=== PATIENT | male | born 1950 | race Caucasian/White ===

== ENCOUNTER → 2017-08-23 | Outpatient (CLI) | payer OTHER ==
[2017-08-23 17:58] LABS: CREATININE 1.3 mg/dL (0.6-1.3)
== END ==
LOC: M.LAB 17:32 → M.CT 17:32
PROVIDERS: Surgery
DX: K61.1 Rectal abscess (principal)

== ENCOUNTER → 2019-03-18 | Outpatient (CLI) | payer OTHER ==
[~2019-03-18] MED LIST: KEFLEX500 M2 PO; NORCO 5-325 TA1 EAC1 PO; OFEV100 MG PO; WATER PILL; XARELTO2.5 MG PO
== END ==
LOC: M.WC 09:17
DX: E11.621 Type 2 diabetes mellitus with foot ulcer (principal); L97.411 Non-pressure chronic ulcer of right heel and midfoot limited to breakdown of skin; E78.5 Hyperlipidemia, unspecified; I27.20 Pulmonary hypertension, unspecified; I11.0 Hypertensive heart disease with heart failure; I50.9 Heart failure, unspecified; J84.10 Pulmonary fibrosis, unspecified; Z95.0 Presence of cardiac pacemaker; Z79.4 Long term (current) use of insulin

== ENCOUNTER → 2019-03-25 | Outpatient (CLI) | payer OTHER | LOC: M.WC 05:10 | DX: E11.621 Type 2 diabetes mellitus with foot ulcer (principal); L97.412 Non-pressure chronic ulcer of right heel and midfoot with fat layer exposed; E78.5 Hyperlipidemia, unspecified; I11.0 Hypertensive heart disease with heart failure; I50.9 Heart failure, unspecified; I27.20 Pulmonary hypertension, unspecified; Z95.810 Presence of automatic (implantable) cardiac defibrillator ==

== ENCOUNTER → 2019-03-28 | Outpatient (CLI) | payer OTHER | LOC: M.WC 12:39 | DX: E11.621 Type 2 diabetes mellitus with foot ulcer (principal); L97.412 Non-pressure chronic ulcer of right heel and midfoot with fat layer exposed; E78.5 Hyperlipidemia, unspecified; I11.0 Hypertensive heart disease with heart failure; I50.9 Heart failure, unspecified; I27.20 Pulmonary hypertension, unspecified; J84.10 Pulmonary fibrosis, unspecified ==

== ENCOUNTER → 2019-04-01 | Outpatient (CLI) | payer OTHER | LOC: M.WC 05:40 | DX: E11.621 Type 2 diabetes mellitus with foot ulcer (principal); L97.412 Non-pressure chronic ulcer of right heel and midfoot with fat layer exposed; E78.5 Hyperlipidemia, unspecified; I27.20 Pulmonary hypertension, unspecified; I11.0 Hypertensive heart disease with heart failure; I50.9 Heart failure, unspecified; J84.10 Pulmonary fibrosis, unspecified ==

== ENCOUNTER → 2019-04-04 | Outpatient (CLI) | payer OTHER | LOC: M.WC 04:50 | DX: E11.621 Type 2 diabetes mellitus with foot ulcer (principal); L97.511 Non-pressure chronic ulcer of other part of right foot limited to breakdown of skin; L97.412 Non-pressure chronic ulcer of right heel and midfoot with fat layer exposed; I11.0 Hypertensive heart disease with heart failure; I27.20 Pulmonary hypertension, unspecified; I50.9 Heart failure, unspecified; E78.5 Hyperlipidemia, unspecified ==

== ENCOUNTER 2019-04-06 12:21 | Emergency (ER) | payer OTHER ==
[~2019-04-06] VITALS: Ht 188 cm; Wt 88.5 kg
[2019-04-06] MEDS ORDERED: OFEV100 MG PO (12:35)
[2019-04-06] MEDS ORDERED: XARELTO2.5 MG PO (12:36)
[2019-04-06] MEDS ORDERED: WATER PILL (12:37)
[2019-04-06] MEDS ORDERED: KEFLEX500 M2 PO (12:37)
[2019-04-06] MEDS ORDERED: NORCO 5-325 TA1 EAC1 PO (14:41)
[2019-04-06 15:12] VITALS: BP 155/71
== END 2019-04-06 15:12 | disposition home or self-care (01) ==
LOC: M.ERS 12:21
DX: S90.921A Unspecified superficial injury of right foot, initial encounter (principal); Z48.01 Encounter for change or removal of surgical wound dressing; E11.9 Type 2 diabetes mellitus without complications; X58.XXXA Exposure to other specified factors, initial encounter; Y93.89 Activity, other specified; Y92.89 Other specified places as the place of occurrence of the external cause; Y99.8 Other external cause status

== ENCOUNTER → 2019-04-07 | Outpatient (CLI) | payer OTHER ==
[2019-04-07 08:49] LABS: ABSOLUTE EOSINOPHILS 0.1 thou/uL (0.0-0.7); ABSOLUTE LYMPHOCYTES 1.1 thou/uL (0.8-5.3); ABSOLUTE MONOCYTES 0.3 thou/uL (0.0-1.2); ABSOLUTE NEUTROPHILS 2.8 thou/uL (1.6-8.1); BASOPHILS 0.2 %; EOSINOPHILS 2.4 %; HEMOGLOBIN 13.2 gm/dL (14.0-18.0); LYMPHOCYTES 25.8 %; MCH 32.7 pg (26.0-34.0); MCHC 33.8 g/dL (28.0-37.0); MCV 96.8 fL (80.0-100.0); MONOCYTES 7.2 %; MPV 7.2 fl. (7.2-11.1); NUCLEATED RBCS 0 /100WBC; PLATELET COUNT* 135 thou/uL (150-400); POLYS 64.4 %; RBC 4.03 mil/uL (4.50-6.00); RDW-CV 14.5 % (10.5-14.5); WBC 4.3 thou/uL (4.0-11.0)
== END ==
LOC: M.WC 08:00
PROVIDERS: Surgery
DX: E11.621 Type 2 diabetes mellitus with foot ulcer (principal); L97.511 Non-pressure chronic ulcer of other part of right foot limited to breakdown of skin; L97.412 Non-pressure chronic ulcer of right heel and midfoot with fat layer exposed; E78.5 Hyperlipidemia, unspecified; I11.0 Hypertensive heart disease with heart failure; I50.9 Heart failure, unspecified; I27.20 Pulmonary hypertension, unspecified; Z95.810 Presence of automatic (implantable) cardiac defibrillator

== ENCOUNTER → 2019-04-15 | Outpatient (CLI) | payer OTHER ==
[2019-04-15 08:25] LABS: CREATININE 0.9 mg/dL (0.6-1.3)
== END ==
LOC: M.MRI 07:59 → M.LAB 07:59 → M.MRI 08:30
PROVIDERS: Emergency Medicine Undersea and Hyperbaric Medicine
DX: Z48.01 Encounter for change or removal of surgical wound dressing (principal); E11.621 Type 2 diabetes mellitus with foot ulcer; L97.519 Non-pressure chronic ulcer of other part of right foot with unspecified severity; M86.8X7 Other osteomyelitis, ankle and foot; Z95.810 Presence of automatic (implantable) cardiac defibrillator

== ENCOUNTER → 2019-04-15 | Outpatient (CLI) | payer OTHER | LOC: M.WC 04-08 08:00 | DX: E11.621 Type 2 diabetes mellitus with foot ulcer (principal); L97.412 Non-pressure chronic ulcer of right heel and midfoot with fat layer exposed; E11.69 Type 2 diabetes mellitus with other specified complication; M86.071 Acute hematogenous osteomyelitis, right ankle and foot; E78.5 Hyperlipidemia, unspecified; I11.0 Hypertensive heart disease with heart failure; I50.9 Heart failure, unspecified; I27.20 Pulmonary hypertension, unspecified; J84.10 Pulmonary fibrosis, unspecified ==

== ENCOUNTER → 2019-04-16 | Outpatient (CLI) | payer OTHER ==
[2019-04-16 16:16] LABS: ABSOLUTE EOSINOPHILS 0.1 thou/uL (0.0-0.7); ABSOLUTE LYMPHOCYTES 1.1 thou/uL (0.8-5.3); ABSOLUTE MONOCYTES 0.3 thou/uL (0.0-1.2); ABSOLUTE NEUTROPHILS 2.1 thou/uL (1.6-8.1); BASOPHILS 0.5 %; EOSINOPHILS 2.4 %; HEMATOCRIT 37.6 % (42.0-52.0); HEMOGLOBIN 12.7 gm/dL (14.0-18.0); MCH 32.9 pg (26.0-34.0); MCHC 33.8 g/dL (28.0-37.0); MCV 97.4 fL (80.0-100.0); MPV 7.8 fl. (7.2-11.1); NUCLEATED RBCS 0 /100WBC; PLATELET COUNT* 111 thou/uL (150-400); POLYS 59.1 %; RBC 3.86 mil/uL (4.50-6.00); RDW-CV 15.1 % (10.5-14.5); WBC 3.6 thou/uL (4.0-11.0)
[2019-04-16 16:23] LABS: CREATININE 1.1 mg/dL (0.6-1.3); POTASSIUM 4.6 mmol/L (3.5-5.1)
[2019-04-16 16:28] LABS: TOTAL BILIRUBIN 0.7 mg/dL (<0.1-1.0); TOTAL PROTEIN 6.4 g/dL (6.4-8.2)
[2019-04-16 17:19] LABS: ESR (SEDRATE) 32 mm/hr (0-20)
[2019-04-17 02:06] LABS: GLYCOHEMOGLOBIN (HGB A1C) 6.4 % (4.8-5.6)
--- NOTE | 2019-04-17 11:53 | CON ---
[address] [address] CONSULTATION Name: KAROLHERMINIO BANDAR [facility] [id number] Admission: 04/16/19 Attend Phys: Paul Green DPM Discharge: Date of : 52 Report #: [id number] THIS REPORT FOR: //name// CC: Paul Walker DATE OF SERVICE: 04/16/2019 INFECTIOUS DISEASE CONSULTATION Referral from the outpatient wound care center. ATTENDING PHYSICIAN: Dr. Paul Green. REASON FOR EVALUATION: Deep right plantar wound complicated by infection, possible osteomyelitis with septic arthritis involving the fifth metatarsophalangeal joint. HISTORY OF PRESENT ILLNESS: Chart reviewed, patient examined. This is a 68-year-old gentleman with diabetes mellitus, reportedly does have minimal neuropathy, not clear if he has any vasculopathy, who has longstanding wound dating back 3-4 weeks along the plantar lateral aspect of his right foot. This has been complicated by bleeding on at least 2 occasions requiring urgent response. Additionally, he had a culture on the initial wound care visit with polymicrobial growth including Enterococcus faecalis and Enterobacter, more recent culture with Escherichia coli as well as Prevotella, has been on ciprofloxacin. Clinically, he has improved. He denies systemic illness, no fevers. He had 1 day of chills. His appetite has been good. He states his blood sugars have been well controlled, rarely exceeding 160, often in the double digits. He denies any significant pulmonary or gastrointestinal related complaints. ALLERGIES: None known. MEDICATIONS: Include dicyclomine, ondansetron, Lipitor, digoxin, Levemir, NovoLog, Lasix, Ofev, Ambien, [place]. PAST MEDICAL HISTORY: Diabetes mellitus, has a defibrillator, ulceration involving the distal right lower extremity. SOCIAL HISTORY: Available in chart. FAMILY HISTORY: Available in chart. REVIEW OF SYSTEMS: Otherwise, unremarkable 10-point review of systems except as noted in the above [place] [address] CONSULTATION Name: HERMINIO ROBERSON Room: [facility]#: [id number] Admission: 04/16/19 Attend Phys: Paul Green DPM Discharge: Date of : 52 Report #: [id number] PHYSICAL EXAMINATION: GENERAL: Alert and cooperative. He is lucid, no acute distress, appears to be reasonably well nourished. VITAL SIGNS: Stable. HEENT: Unremarkable. Normocephalic. Extraocular muscles intact. NECK: Supple. LUNGS: Breathing is nonlabored. EXTREMITIES: Right foot has a large defect overlying the area of the fifth metatarsophalangeal joint and surrounds. There is some necrosis. Post debridement, there was exposed joint capsule. It bled freely. There is no particular purulence, no odor. GENITOURINARY: Deferred. RECTAL: Deferred. LABORATORY DATA: Review of cultures described above. ASSESSMENT AND PLAN: Deep right plantar lateral foot wound complicated by infection. We will continue the Cipro for now. I did ask Dr. Green to get some tissue cultures, which were sent. Also had a lengthy discussion about concerns about chronic osteomyelitis involving the foot. I think it is reasonable to continue the current approach with systemic antibiotics. In the event of lack of healing, consider more aggressive surgical option up to including toe amputation as well as metatarsectomy. At that point, we would likely switch to parenteral antimicrobial therapy. He is to offload the site and optimize his nutritional status. Thank you. We will follow. <ELECTRONICALLY SIGNED> By: Silas Milton MD 04/17/19 1153 1625 0022Josebola Milton MD /nt
== END ==
LOC: M.WC 05:31
PROVIDERS: Specialist
DX: E11.621 Type 2 diabetes mellitus with foot ulcer (principal); L97.412 Non-pressure chronic ulcer of right heel and midfoot with fat layer exposed; E11.69 Type 2 diabetes mellitus with other specified complication; M86.071 Acute hematogenous osteomyelitis, right ankle and foot; E78.5 Hyperlipidemia, unspecified; I11.0 Hypertensive heart disease with heart failure; I50.9 Heart failure, unspecified; I27.20 Pulmonary hypertension, unspecified

== ENCOUNTER → 2019-04-23 | Outpatient (CLI) | payer OTHER ==
--- NOTE | 2019-04-24 13:21 | CON ---
[address] [address] CONSULTATION Name: HERMINIO ROBERSON BANDAR Room: [facility].#: [id number] Admission: 04/23/19 Attend Phys: Paul Green DPM Discharge: Date of : 52 Report #: [id number] THIS REPORT FOR: //name// CC: Paul Walker DATE OF SERVICE: 04/23/2019 INFECTIOUS DISEASE CONSULTATION ATTENDING PHYSICIAN: Paul Green DPM HISTORY OF PRESENT ILLNESS: The patient returns in followup scheduled visit at outpatient [facility]ound Care Center for a chronic ulcer involving the right foot lateral plantar aspect primarily involving the fifth toe as well as the metatarsal site extending down proximally. The patient returns today in followup having been extended on his antibiotics with ciprofloxacin. Repeat culture was available today, which showed coag-negative Staphylococcus that was vancomycin-resistant as well as quinolone resistant. PHYSICAL EXAMINATION: On examination, the wound is fairly clear, although Dr. Green did note exposed hard tissue, specifically the cartilage due to concern about infection, he did debride the site including removing part of the cartilage around the fifth metatarsal head as well as bone, he sent that for pathology. He generally states he feels fairly well. He does not have a significant amount of pain associated with the site. He has had no fevers or chills. His appetite has generally been good. DISCUSSION: There was discussion about more definitive treatment in terms of operative intervention. It was felt that he would have to have a clearance from Cardiology. In the interim, we will initiate a new combination therapy of Bactrim-DS as well as rifampin. Probiotics were made available as well. Wound care as prescribed by Dr. Green, he clearly needs to offload, optimize his nutritional status. Discussed in detail with the patient and his daughter. <ELECTRONICALLY SIGNED> By: Silas Milton MD 04/24/19 1321 1743 [id number] Milton MD /nt
--- NOTE | 2019-04-28 11:07 | PATH ---
[facility] [address] [place] [address] PATHOLOGY RPT PROCEDURE Name: KAROLJEAN BANDAR Room: [facility].#: [id number] Admission: 04/23/19 Date of : 52 Discharge: Report #: [id number] Path Case #: [id number] LCA Accession Number: [id number] . 01 Material submitted: . foot - RIGHT FOOT BONE BIOPSY. Modifiers: right . 01 Clinical history: . None provided . 02 Diagnosis: "Right foot bone", biopsy: - Portion of bone with acute osteomyelitis. - Separate portion of acute and chronically inflamed granulation tissue. (SKM:pit; 04/28/2019) QTP 04/28/2019 0738 Local . 02 Electronically signed: . Bandar Mg MD, Pathologist NPI- [id number] . 01 Gross description: . The specimen is received in formalin, labeled "Jean Kraus, Karma foot bone". Received is a segment of pale mock possible skin measuring 1.4 x 1.4 x 0.2 cm and separately submitted segment of bone measuring 1.0 x 0.9 x 0.5 cm in greatest dimensions. The specimen is submitted entirely in cassette A1, following decalcification. (CAA; 04/24/2019) QA/QA 04/24/2019 1105 Local . 02 Pathologist provided ICD-10: M86.171 . 02 CPT . 394227, 573457 Specimen Comment: A courtesy copy of this report has been sent to [phone] Specimen Comment: [phone] Specimen Comment: Report sent to / DR JIMENEZ Performed at: 01 [facility] [address] [id number] MD Kingsley Robles MD Phone: [phone] Performed at: [address] [id number] MD Mumtaz Gasca MD Phone: [phone]
== END ==
LOC: M.WC 03:20
DX: E11.621 Type 2 diabetes mellitus with foot ulcer (principal); L97.412 Non-pressure chronic ulcer of right heel and midfoot with fat layer exposed; E11.69 Type 2 diabetes mellitus with other specified complication; M86.071 Acute hematogenous osteomyelitis, right ankle and foot; E11.42 Type 2 diabetes mellitus with diabetic polyneuropathy; E78.5 Hyperlipidemia, unspecified; I11.0 Hypertensive heart disease with heart failure; I50.9 Heart failure, unspecified; I27.20 Pulmonary hypertension, unspecified

== ENCOUNTER → 2019-04-30 | Outpatient (CLI) | payer OTHER ==
[2019-04-30 15:50] LABS: ABSOLUTE LYMPHOCYTES 0.6 thou/uL (0.8-5.3); ABSOLUTE MONOCYTES 0.2 thou/uL (0.0-1.2); ABSOLUTE NEUTROPHILS 2.3 thou/uL (1.6-8.1); BASOPHILS 0.3 %; EOSINOPHILS 1.5 %; HEMATOCRIT 39.9 % (42.0-52.0); HEMOGLOBIN 13.4 gm/dL (14.0-18.0); LYMPHOCYTES 18.6 %; MCH 32.2 pg (26.0-34.0); MCHC 33.6 g/dL (28.0-37.0); MCV 95.9 fL (80.0-100.0); MONOCYTES 6.5 %; MPV 7.6 fl. (7.2-11.1); NUCLEATED RBCS 0 /100WBC; PLATELET COUNT* 137 thou/uL (150-400); POLYS 73.1 %; RBC 4.15 mil/uL (4.50-6.00); RDW-CV 15.1 % (10.5-14.5); WBC 3.2 thou/uL (4.0-11.0)
[2019-04-30 16:02] LABS: ALBUMIN 3.5 g/dL (3.4-5.0); CALCIUM 9.5 mg/dL (8.5-10.1); CREATININE 0.9 mg/dL (0.6-1.3); POTASSIUM 4.8 mmol/L (3.5-5.1); TOTAL BILIRUBIN 0.8 mg/dL (<0.1-1.0); TOTAL PROTEIN 6.9 g/dL (6.4-8.2)
--- NOTE | 2019-05-01 11:58 | CON ---
[address] [address] CONSULTATION Name: KAROLHERMINIO BANDAR Room: [facility]..#: [id number] Admission: 04/30/19 Attend Phys: Paul Green DPM Discharge: Date of : 52 Report #: [id number] THIS REPORT FOR: //name// CC: Paul Walker DATE OF SERVICE: 04/30/2019 INFECTIOUS DISEASE CONSULTATION FOLLOWUP ATTENDING PHYSICIAN: Paul Green DPM. HISTORY OF PRESENT ILLNESS: He is here for followup of chronic ulceration involving the lateral aspect of the right foot, had been initially evaluated with culture with growth of coag-negative staph. He has been placed on combination therapy due to concerns about extension to the bone, utilizing a trimethoprim sulfamethoxazole as well as rifampin. Clinically, he states he has been feeling relatively well. Denies any systemic illness. He does have ongoing issues with pain associated with the site, primarily involving the fifth metatarsophalangeal joint. On examination, the wound appeared to be improved. There is some suggestion that there is a superficial inflammation that has persisted, although it is better. He did debride the site, has increased granulation tissue. Overall, dimensions are decreased. Review of pathology noted evidence of acute osteomyelitis involving the snippet of bone that he took in the office. ASSESSMENT AND PLAN: Osteomyelitis. At this point, there have been discussions about proceeding with surgery. There are factors including that he does have atrial thrombus, is on anticoagulation. He would be at significant risk in terms of therapy. The wound overall has improved. It is felt that likely he has a nonfunctional fifth toe at this point and eventually may need to have that removed. We will continue current therapy as prescribed. Check weekly labs. We will see him back in 1 week. <ELECTRONICALLY SIGNED> By: Silas Milton MD 05/01/19 1158 0843 [id number] Milton MD /nt
--- NOTE | 2019-05-05 11:07 | PATH ---
[address] [address] PATHOLOGY RPT PROCEDURE Name: KAROLJEAN BANDAR Room: [facility].#: [id number] Admission: 04/30/19 Date of : 52 Discharge: Report #: [id number] Path Case #: [id number] LCA Accession Number: [id number] . 01 Material submitted: . foot - BONE RIGHT DISTAL LATERAL PLANTAR FOOT. Modifiers: right, distal, lateral . 01 Clinical history: . Wound . 02 Diagnosis: Bone, right foot, biopsy: - Portion of bone with fibrosis of marrow space. . (SKM:mml; 05/02/2019) QLM 05/02/2019 1532 Local . 02 Electronically signed: . Bandar Mg MD, Pathologist NPI- [id number] . 01 Gross description: . The specimen is received in formalin labeled "Jean Kraus, bone R foot". The specimen source is listed on the requisition as "right, distal, lateral, plantar foot". Received is an irregular, roughly ovoid segment of granular, mock-brown bone admixed with soft tissue measuring 0.8 x 0.6 x 0.4 cm in greatest dimensions. The specimen is inked black, bisected and submitted entirely in cassette A1, following decalcification. (DAC; 05/01/2019) XDC/XDC 05/01/2019 1239 Local . 02 Pathologist provided ICD-10: Z03.89 . 02 CPT . 820697, 770804 Specimen Comment: A courtesy copy of this report has been sent to [phone] Specimen Comment: [phone] Specimen Comment: Report sent to / DR JIMENEZ Performed at: [address] [id number] MD Kingsley Robles MD Phone: [phone] Performed at: 02 [facility] [address] [place], [place] [id number] [place] [id number] PATHOLOGY RPT PROCEDURE Name: JEAN KRAUS [facility] [id number] Admission: 04/30/19 Date of : 52 Discharge: Report #: [id number] Path Case #: [id number] MD Russell Marie MD Phone: [phone]
== END ==
LOC: M.WC 05:05
PROVIDERS: Podiatrist Foot & Ankle Surgery
DX: E11.621 Type 2 diabetes mellitus with foot ulcer (principal); L97.416 Non-pressure chronic ulcer of right heel and midfoot with bone involvement without evidence of necrosis; E11.69 Type 2 diabetes mellitus with other specified complication; M86.071 Acute hematogenous osteomyelitis, right ankle and foot; E78.5 Hyperlipidemia, unspecified; I11.0 Hypertensive heart disease with heart failure; I50.9 Heart failure, unspecified; I27.20 Pulmonary hypertension, unspecified; J84.10 Pulmonary fibrosis, unspecified

== ENCOUNTER → 2019-05-07 | Outpatient (CLI) | payer OTHER ==
--- NOTE | 2019-05-08 12:18 | CON ---
[address] [address] CONSULTATION Name: KAROLHERMINIO PORTILLO Room: [facility] M.R.#: [id number] Admission: 05/07/19 Attend Phys: Paul Green DPM Discharge: Date of : 52 Report #: [id number] THIS REPORT FOR: //name// CC: Paul Walker DATE OF SERVICE: 05/07/2019 ATTENDING PHYSICIAN: Paul Green DPM HISTORY OF PRESENT ILLNESS: He is here for followup of lateral right foot ulceration in setting of chronic osteomyelitis. He was recently noted to have exposed bone. This was removed and sent off for path. Culture with growth of Staphylococcus. He had been empirically started on minocycline and rifampin. It was notified that due to his pulmonary fibrosis and medicine requires, there is substantial risk due to increased metabolism and felt the drug levels may drop. The rifampin was discontinued. He continued to show improvement. The overall wound on probing, there is no exposed bone. The degree of inflammation is significantly less than it was last week. He does note there is no significant amount of pain. Chronic ulceration. For previous chronic osteomyelitis post resection of the metatarsal head, we will continue minocycline as prescribed. We will optimize his nutritional status. Wound care per Dr. Green. I think the goal at this point is to heel the wound. May reconsider amputation of the fifth toe at a later date. <ELECTRONICALLY SIGNED> By: Silas Milton MD 05/08/19 1218 1743 0036Joseph Anne Milton MD /nt
== END ==
LOC: M.WC 04:59
DX: E11.621 Type 2 diabetes mellitus with foot ulcer (principal); L97.412 Non-pressure chronic ulcer of right heel and midfoot with fat layer exposed; E11.69 Type 2 diabetes mellitus with other specified complication; M86.071 Acute hematogenous osteomyelitis, right ankle and foot; E78.5 Hyperlipidemia, unspecified; I87.2 Venous insufficiency (chronic) (peripheral); I27.20 Pulmonary hypertension, unspecified; I11.0 Hypertensive heart disease with heart failure; I50.9 Heart failure, unspecified; J84.10 Pulmonary fibrosis, unspecified

== ENCOUNTER → 2019-05-21 | Outpatient (CLI) | payer OTHER ==
[2019-05-21 14:42] LABS: ABSOLUTE EOSINOPHILS 0.2 thou/uL (0.0-0.7); ABSOLUTE LYMPHOCYTES 1.2 thou/uL (0.8-5.3); ABSOLUTE MONOCYTES 0.4 thou/uL (0.0-1.2); ABSOLUTE NEUTROPHILS 3.8 thou/uL (1.6-8.1); BASOPHILS 0.3 %; EOSINOPHILS 3.1 %; HEMATOCRIT 41.3 % (42.0-52.0); LYMPHOCYTES 21.5 %; MCH 32.5 pg (26.0-34.0); MCHC 33.9 g/dL (28.0-37.0); MCV 95.8 fL (80.0-100.0); MONOCYTES 6.6 %; MPV 7.6 fl. (7.2-11.1); NUCLEATED RBCS 0 /100WBC; PLATELET COUNT* 139 thou/uL (150-400); POLYS 68.5 %; RBC 4.32 mil/uL (4.50-6.00); RDW-CV 15.5 % (10.5-14.5); WBC 5.5 thou/uL (4.0-11.0)
[2019-05-21 14:52] LABS: CALCIUM 8.7 mg/dL (8.5-10.1); CREATININE 1.4 mg/dL (0.6-1.3); POTASSIUM 5.9 mmol/L (3.5-5.1)
[2019-05-21 14:56] LABS: ALBUMIN 3.4 g/dL (3.4-5.0); TOTAL BILIRUBIN 0.4 mg/dL (<0.1-1.0); TOTAL PROTEIN 6.4 g/dL (6.4-8.2)
[2019-05-21 16:04] LABS: ESR (SEDRATE) 8 mm/hr (0-20)
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
== END ==
LOC: M.WC 04:01
PROVIDERS: Specialist
DX: E11.621 Type 2 diabetes mellitus with foot ulcer (principal); L97.512 Non-pressure chronic ulcer of other part of right foot with fat layer exposed; L97.412 Non-pressure chronic ulcer of right heel and midfoot with fat layer exposed; E11.69 Type 2 diabetes mellitus with other specified complication; M86.071 Acute hematogenous osteomyelitis, right ankle and foot; I11.0 Hypertensive heart disease with heart failure; I50.9 Heart failure, unspecified; E78.5 Hyperlipidemia, unspecified

== ENCOUNTER → 2019-06-04 | Outpatient (CLI) | payer OTHER ==
--- NOTE | 2019-06-05 12:35 | CON ---
[address] [address] CONSULTATION Name: KAROLHERMINIO PORTILLO [facility] [id number] Admission: 06/04/19 Attend Phys: Paul Green DPM Discharge: Date of : 52 Report #: [id number] THIS REPORT FOR: //name// CC: Paul Walker DATE OF SERVICE: 06/04/2019 INFECTIOUS DISEASE CONSULTATION ATTENDING PHYSICIAN: Dr. Paul Green. HISTORY OF PRESENT ILLNESS: He now returns for followup of chronic ulceration and has been complicated by deep infection, likely osteomyelitis involving the lateral aspect of the fifth toe plantar surface centrally overlying the fifth metatarsophalangeal joint. On examination, the wound is significantly improved from previous. It is clear, there is much less inflammation noted overall. The dimensions are decreased. He has overall less pain and discomfort. There is no exposed hard tissue within the wound. ASSESSMENT AND PLAN: Deep infection involving the right foot. At this point, he has been off antibiotics for several days due to concern about adverse drug effect. Seemingly, it is resolved. We will continue to monitor expectantly and see him in followup in 3 weeks. <ELECTRONICALLY SIGNED> By: Silas Milton MD 06/05/19 1235 0828 1028Josebola Milton MD /nt
== END ==
LOC: M.WC 05:21
DX: E11.621 Type 2 diabetes mellitus with foot ulcer (principal); L97.412 Non-pressure chronic ulcer of right heel and midfoot with fat layer exposed; E11.69 Type 2 diabetes mellitus with other specified complication; M86.071 Acute hematogenous osteomyelitis, right ankle and foot; E78.5 Hyperlipidemia, unspecified; I27.20 Pulmonary hypertension, unspecified; I11.0 Hypertensive heart disease with heart failure; I50.9 Heart failure, unspecified; J84.10 Pulmonary fibrosis, unspecified

== ENCOUNTER → 2019-06-12 | Outpatient (CLI) | payer OTHER | LOC: M.WC 01:42 | DX: E11.621 Type 2 diabetes mellitus with foot ulcer (principal); L97.412 Non-pressure chronic ulcer of right heel and midfoot with fat layer exposed; E11.69 Type 2 diabetes mellitus with other specified complication; M86.071 Acute hematogenous osteomyelitis, right ankle and foot; I11.0 Hypertensive heart disease with heart failure; I50.9 Heart failure, unspecified; E78.5 Hyperlipidemia, unspecified; J84.10 Pulmonary fibrosis, unspecified; Z86.711 Personal history of pulmonary embolism ==